=== PATIENT | male | born 1960 | race Caucasian/White ===

== ENCOUNTER 2016-10-17 18:31 | Emergency (ER) | payer MEDICAID ==
--- NOTE | 2016-10-17 19:25 | EDPHY ---
H & P Time Seen by Provider: 10/17/16 18:46 HPI/ROS: CHIEF COMPLAINT: Right calf pain HISTORY OF PRESENT ILLNESS: This patient is a 56-year-old male with history of DVT and subsequent PE in 2016 who presents to the Emergency Department complaining of atraumatic mild right calf pain beginning this morning and worsening over time. He denies swelling or tenderness to the touch. No shortness of breath, chest pain, or any additional complaints. He was previously on Xarelto following the initial PE but has not taken this for the last few months. He does not take a daily aspirin. REVIEW OF SYSTEMS: Constitutional: No fever, no chills Eyes: No visual changes ENT: No sore throat Respiratory: No cough, no shortness of breath Cardiac: No chest pain Gastrointestinal: No nausea, no vomiting, no abdominal pain Genitourinary: No hematuria, no dysuria Musculoskeletal: As in HPI Skin: No rash Neurological: No headache, no numbness, no weakness Psychiatric: No depression Past Medical/Surgical History: DVT and PE in 2016 Social History: Non-smoker Smoking Status: Never smoked Physical Exam: General Appearance: Alert, no distress Eyes: Pupils equal and round, no conjunctival pallor or injection ENT, Mouth: Mucous membranes moist Neck: Normal inspection Respiratory: Lungs are clear to auscultation Cardiovascular: Regular rate and rhythm Gastrointestinal: Abdomen is soft and non- tender Neurological: A&O, nonfocal, normal gait Skin: Warm and dry, no rash Extremities: Tenderness to right upper calf, no swelling Psychiatric: Mood and affect normal Constitutional: Initial Vital Signs Temperature (C) 36.7 C 10/17/16 18:50 Heart Rate 66 10/17/16 18:50 Respiratory Rate 17 10/17/16 18:50 Blood Pressure 115/66 10/17/16 18:50 O2 Sat (%) 97 10/17/16 18:50 O2 Delivery Mode Room Air Allergies/Adverse Reactions: joey Allergy (Verified 10/17/16 18:50) Home Medications: Medication Instructions Recorded Cholecalciferol Vit D3 [Vitamin D3 5,000 units PO DAILY 10/03/15 (*)] Glucosamine Sulfate [Glucosamine 500 mg PO DAILY 10/03/15 Sulfate 500 MG (*)] [place]-3 Fatty Acids [Fish Oil 1000 10,000 mg PO DAILY 10/03/15 mg (*)] Zinc Gluconate [Zinc Chelated 50mg 50 mg PO DAILY8 10/03/15 (*)] Rivaroxaban [Xarelto 15mg (*)] 15 mg PO BID #42 tab 10/17/16 Medical Decision Making - Diagnostics Imaging Results: Imaging Impressions Extremity Venous Study 10/17/16 18:45 Impression: Deep venous thrombosis involving the proximal gastrocnemius muscular venous branch. Findings were discussed with LADONNA BANERJEE MD at 19:46, on 10/17/2016. ED Course/Re-evaluation: 56-year-old male with history of right calf DVT and subsequent PE in 2016 presents with complaint of calf pain and tightness first beginning this morning. He denies chest pain or shortness of breath. His right upper calf is tender but otherwise normal inspection. Will proceed with US of the right lower extremity. 1954: US of the lower extremity is positive for DVT per Dr. Sauceda, radiology. I discussed these results with the patient. He will be started on PO Xarelto and given instructions to follow-up with Dr. Mccoy for further evaluation and treatment. He is agreeable to this and will be discharged home in good condition. 15mg PO Xarelto administered prior to discharge. Differential Diagnosis: The differential diagnosis for the patient's leg swelling included but was not limited to hypoalbuminemia, congestive heart failure, cor pulmonale, venous stasis, trauma, and DVT. Departure - Departure Disposition: Home, Routine, Self-Care Clinical Impression: Right leg DVT Qualifiers: Affected thrombotic vein of extremity: unspecified vein of extremity Chronicity : acute Qualified Code(s): I82.401 - Acute embolism and thrombosis of unspecified deep veins of right lower extremity Condition: Good Instructions: Deep Venous Thrombosis (ED) Additional Instructions: Take Xarelto as prescribed to treat your DVT. Follow-up with Dr. Mccoy without fail in 2-3 days. Return to the Emergency Department with chest pain, shortness of breath, increased pain or swelling to your calf, or for other serious concerns. Referrals: Peter Lazo MD [Primary Care Provider] - As per Instructions Emanuel Mccoy MD [Medical Doctor] - As per Instructions Prescriptions: Rivaroxaban [Xarelto 15mg (*)] 15 mg PO BID #42 tab Report Scribed for: Ladonna Banerjee Report Scribed by: Altagracia Robles Date of Report: 10/17/16 Time of Report: 19:24 Physician Review and Approval Statement: 10/17/16 19:24 Portions of this note were transcribed by a family practice medical doctor. I personally performed a history, physical exam, medical decision making, and confirmed accuracy of information the transcribed note.
[2016-10-17 20:21] VITALS: BP 114/75; PULSE 70; RESP 16; TEMP 98.4; O2SAT 96
[2016-10-17] MEDS ORDERED: RIVAROXABAN 15 MG TAB PO ONE (21:00)
== END 2016-10-17 20:19 | disposition home or self-care (01) ==
DX: I82.401 Acute embolism and thrombosis of unspecified deep veins of right lower extremity (principal)

== ENCOUNTER 2017-10-05 17:01 | Emergency (ER) | payer MEDICAID ==
--- NOTE | 2017-10-05 18:41 | EDPHY ---
HPI/HX/ROS/PE/MDM - Data Points Imaging: Discussed imaging studies w/ will call clerk Radiologist Narrative: CHIEF COMPLAINT: Left calf pain, history of DVT HISTORY OF PRESENT ILLNESS: The patient is a 57 y/o male with a history of DVT and PE, both unprovoked, complaining of calf pain. His former clots were thoroughly investigated with no etiology found. He was on xarelto for years but hasn't been recently. He began feeling a tightness in his left calf a few weeks ago which worsened today. He reports associated swelling and brief difficulty breathing while exerting. He denies fever, numbness or tingling, pain in the thigh, shortness of breath while resting, chest pain, or any other associated symptoms. No fever, chills, chest pain, palpitations, vomiting, diarrhea, urinary complaints, headache, lightheadedness. REVIEW OF SYSTEMS: Aside from elements discussed in the HPI, a comprehensive 10-point review of systems was reviewed and is negative. PAST MEDICAL HISTORY: DVT, PE SOCIAL HISTORY: Lives in [place], employed as a massage therapist, medicaid patient VITAL SIGNS: Reviewed by me GENERAL: Well-developed, well-nourished, resting comfortably in no respiratory distress. HEENT: Atraumatic. Eyes: No icterus, no injection. Mouth: moist mucous membranes. No erythema or lesions. Neck: supple with no adenopathy. LUNGS: Clear to auscultation bilaterally, no wheezes, rhonchi or rales. CARDIAC: Regular rate and rhythm, no rubs, murmurs or gallops. ABDOMEN: Soft, nontender, nondistended, bowel sounds normal. BACK: No CVA tenderness. EXTREMITIES: Swelling in right calf chronically. Left calf is soft, nontender, no redness. No trauma. Range of motion is normal throughout. NEURO: Alert and oriented, grossly nonfocal. SKIN: Warm and dry, no rash. PSYCHIATRIC: Normal mentation, no agitation. (Nena Batista) ED Course: US: US of left calf was obtained. The radiologist interpretation is negative for DVT. I discussed the x-ray findings with the patient. The patient has a history of DVT and PE and presents with left calf pain. Exam show right calf is chronically swollen but has no other findings. Ultrasound of the left calf is negative for DVT. Patient is concerned regarding his episode of shortness of breath earlier. He states that he did not have shortness of breath previously but had a significantly elevated D-dimer. Plan for D-dimer. 7:45 PM - I reassessed the patient and informed him of the results of his D- dimer, which was positive at .78. I presented him with the option of chest CT and he would like to pursue that course of action. Plan for CT of the chest with contrast and basic metabolic panel. Patient's creatinine is 1.1. Patient was sent for CT scan of the chest to rule out pulmonary embolism. The results of the study are pending at this time. Patient's care was assumed by Dr. Uribe at 9:00 p.m.. (Nena Batista) CT scan shows residual clot bilaterally in the 2nd and 3rd order vessels. Likely chronic. No definite acute new clot per Dr. Callahan at 9:35 p.m.. Discussed with patient he prefers to not re-start Xarelto at this time. Reviewed ultrasound results. Recommended follow-up with primary care physician this week. Discussed return precautions in detail. Stable for discharge. ( Renee Uribe) MDM: Differential diagnosis for the patient's complaints of leg swelling and brief shortness of breath was considered including but not limited to cellulitis, hypoalbuminemia, congestive heart failure, DVT, pulmonary embolism. (Nena Batista) - Data Points Imaging Results: Imaging Impressions Extremity Venous Study 10/05/17 17:10 Impression: No evidence of deep vein thrombosis in the left lower extremity. Results called and discussed with Nena Batista MD on 10/05/2017 at 18:57. Chest/Thorax CTA 10/05/17 19:55 Impression: 1. Scattered, minimal small filling defects are seen in second and third order pulmonary arteries bilaterally. These may represent chronic residua of more extensive embolic disease that was documented in the 2016 study. 2. See above report for additional findings. Results called and discussed with Dr. Uribe on 10/05/2017 21:42. Laboratory Results: Laboratory Results 10/05/17 19:21 10/05/17 10/05/17 10/05/17 20:52 19:21 19:21 POC Hgb 14.3 gm/dL gm/dL (13.7-17.5) POC Hct 42 % % (40-51) D-Dimer 0.79 ug/mLFEU H ug/mLFEU (0.00-0.50) POC Sodium 139 mEq/L mEq/L (135-145) Sodium 140 mEq/L mEq/L (135-145) POC Potassium 3.6 mEq/L mEq/L (3.3-5.0) Potassium 4.1 mEq/L mEq/L (3.3-5.0) POC Chloride 103 mEq/L mEq/L (97-110) Chloride 104 mEq/L mEq/L (97-110) Carbon Dioxide 23 mEq/l mEq/l (22-31) Anion Gap 13 mEq/L mEq/L (8-16) POC BUN 29 mg/dL H mg/dL (7-23) BUN 32 mg/dL H mg/dL (7-23) Creatinine 1.0 mg/dL mg/dL (0.7-1.3) POC Creatinine 1.1 mg/dL mg/dL (0.7-1.3) Estimated GFR > 60 Glucose 83 mg/dL mg/dL (70-100) POC Glucose 81 mg/dL mg/dL (70-100) Calcium 9.2 mg/dL mg/dL (8.5-10.4) Medications Given: Discontinued Medications Sodium Chloride (Ns) 1,000 mls @ 0 mls/hr IV ONCE ONE; Wide Open PRN Reason: Protocol Stop: 10/05/17 19:56 Last Admin: 10/05/17 20:24 Dose: 1,000 mls Point of Care Test Results: Chemistry 10/05/17 20:52 POC Sodium 139 mEq/L mEq/L (135-145) POC Potassium 3.6 mEq/L mEq/L (3.3-5.0) POC Chloride 103 mEq/L mEq/L (97-110) POC BUN 29 mg/dL H mg/dL (7-23) POC Creatinine 1.1 mg/dL mg/dL (0.7-1.3) POC Glucose 81 mg/dL mg/dL (70-100) ISTAT H&H 10/05/17 20:52 POC Hgb 14.3 gm/dL gm/dL (13.7-17.5) POC Hct 42 % % (40-51) General Time Seen by Provider: 10/05/17 17:54 Initial Vital Signs: Initial Vital Signs Temperature (C) 36.5 C 10/05/17 17:06 Heart Rate 64 10/05/17 17:06 Respiratory Rate 16 10/05/17 17:06 Blood Pressure 135/73 H 10/05/17 17:06 O2 Sat (%) 96 10/05/17 17:06 O2 Delivery Mode Room Air Allergies/Adverse Reactions: joey Allergy (Verified 10/17/16 18:50) Home Medications: Medication Instructions Recorded Cholecalciferol Vit D3 [Vitamin D3 5,000 units PO DAILY 10/03/15 (*)] Glucosamine Sulfate [Glucosamine 500 mg PO DAILY 10/03/15 Sulfate 500 MG (*)] [place]-3 Fatty Acids [Fish Oil 1000 10,000 mg PO DAILY 10/03/15 mg (*)] Zinc Gluconate [Zinc Chelated 50mg 50 mg PO DAILY8 10/03/15 (*)] Departure - Departure Disposition: Home, Routine, Self-Care Clinical Impression: shortness of breath, resolved, calf pain, resolved Condition: Good Instructions: Shortness of Breath (ED) Additional Instructions: 1. Follow-up with your primary care provider for continued symptoms. 2. Return to the emergency department for worsening of condition. Referrals: Peter Lazo MD [Primary Care Provider] - As per Instructions Report Scribed for: Nena Batista Report Scribed by: Leatha Marino Date of Report: 10/05/17 Time of Report: 19:39 Physician Review and Approval Statement: Portions of this note were transcribed by a medical billing and coding instructor. I personally performed a history, physical exam, medical decision making, and confirmed accuracy of information the transcribed note.
[2017-10-05] MEDS ORDERED: NS 1,000 ML IV ONE (19:55)
[2017-10-05] MEDS ORDERED: IOPAMIDOL (ISOVUE 370) 100 ML BTL IV ONE (20:06)
[2017-10-05 22:45] VITALS: BP 125/80
== END 2017-10-05 22:20 | disposition home or self-care (01) ==
DX: M79.662 Pain in left lower leg (principal); E86.9 Volume depletion, unspecified; R06.02 Shortness of breath
CPT/HCPCS: 82435-PO; 82565-PO; 82947-PO; 84132-PO; 84295-PO; 84520-PO; 85014-PO; Q9967